=== PATIENT | female | born 1970 | race Two or more races ===

== ENCOUNTER → 2022-03-12 | Emergency (ER) | payer MEDICAID | END | disposition left against medical advice (07) | LOC: ER 22:21 | DX: M79.674 Pain in right toe(s) (principal); Z53.21 Procedure and treatment not carried out due to patient leaving prior to being seen by health care provider ==

== ENCOUNTER 2023-06-05 06:38 | Emergency (ER) | payer MEDICAID ==
[~2023-06-05] VITALS: Ht 157.5 cm; Wt 73.7 kg
[2023-06-05] MEDS ORDERED: cloNIDine HCL 0.1 MG TAB PO ONE (07:15)
[2023-06-05 07:30] LABS: Basophils # (auto) 0.1 10 ^3/uL (0-0.2); Basophils % (auto) 1.1 % (0.0-2.0); Eosinophils # (auto) 0.3 10 ^3/uL (0-0.8); Eosinophils % (auto) 4.4 % (0.0-7.0); Hematocrit 40.9 % (36.0-46.0); Hemoglobin 13.3 g/dL (12.2-16.2); Lymphocytes # (auto) 1.7 10 ^3/uL (0.4-5.4); Mean Corpuscular Hemoglobin 28.5 pg (28.0-32.0); Mean Corpuscular Hgb Conc. 32.4 g/dL (32.0-36.0); Mean Corpuscular Volume 87.9 fL (80.0-100.0); Monocytes # (auto) 0.5 10 ^3/uL (0-1.3); Monocytes % (auto) 8.2 % (0.0-12.0); Neutrophils % (auto) 61.3 % (37.0-80.0); Nucleated Red Blood Cells % 0.2 %; Red Blood Cells 4.66 10^6/uL (4.0-5.20); Red Cell Distribution Width 17.1 % (11.8-14.3); White Blood Cell 6.6 10^3/uL (4.4-10.8)
[2023-06-05 07:38] LABS: Alanine Aminotransferase 82 U/L (7-40); Albumin 4.4 g/dL (3.2-4.8); Alkaline Phosphatase 147 U/L (46-116); Anion Gap 10 (5-15); Aspartate Aminotransferase 100 U/L (13-40); BUN/Creatinine Ratio 21.6 (10.0-20.0); Blood Urea Nitrogen 11 mg/dL (9-23); Calcium 9.2 mg/dL (8.5-10.1); Carbon Dioxide 23 mmol/L (20-30); Chloride 107 mmol/L (98-107); Glucose 97 mg/dL (74-106); Potassium 3.4 mmol/L (3.5-5.1); Sodium 140 mmol/L (136-145)
[2023-06-05 07:39] LABS: Bilirubin, Total 0.5 mg/dL (0.2-1.0); Total Protein 6.8 g/dL (5.7-8.2)
[2023-06-05 08:00] VITALS: PULSE 83; RESP 15; TEMP 97.8; O2SAT 98
[2023-06-05] MEDS ORDERED: POTA10TA51 PO (08:35)
[2023-06-05] MEDS ORDERED: AML5T PO (08:37)
[2023-06-05] MEDS ORDERED: POTASSIUM EFFERVESENT TAB 25 MEQ PO ONE (08:45)
[2023-06-05] MEDS ORDERED: amLODIPine BESYLATE 5 MG TAB PO ONE (09:00)
[2023-06-05 10:16] VITALS: BP 179/95; PULSE 77; RESP 13; O2SAT 98
== END 2023-06-05 10:54 | disposition home or self-care (01) ==
LOC: ER 06:38
DX: S00.03XA Contusion of scalp, initial encounter (principal); F10.129 Alcohol abuse with intoxication, unspecified; F15.10 Other stimulant abuse, uncomplicated; E87.6 Hypokalemia; I10 Essential (primary) hypertension; R07.89 Other chest pain; F17.210 Nicotine dependence, cigarettes, uncomplicated; Z86.2 Personal history of diseases of the blood and blood-forming organs and certain disorders involving the immune mechanism; Z90.49 Acquired absence of other specified parts of digestive tract; W10.9XXA Fall (on) (from) unspecified stairs and steps, initial encounter; Y93.89 Activity, other specified; Y92.89 Other specified places as the place of occurrence of the external cause; Y99.8 Other external cause status; Y90.9 Presence of alcohol in blood, level not specified
CPT/HCPCS: 36415; 70450; 70486; 71045; 72125; 80053; 84484; 85025; 93005

== ENCOUNTER 2024-01-18 02:16 | Emergency (ER) | payer MEDICAID ==
[~2024-01-18] VITALS: Ht 160 cm; Wt 68.9 kg
[~2024-01-18 02:16] MED LIST: AML5T PO; POTA-36 PO
[2024-01-18 03:38] VITALS: BP 149/99; PULSE 95; RESP 20; TEMP 97.5; O2SAT 94
[2024-01-18] MEDS ORDERED: DOXY100C4 PO (04:10)
[2024-01-18] MEDS ORDERED: IBU600T PO (04:10)
== END 2024-01-18 04:12 | disposition home or self-care (01) ==
LOC: ER 02:16
DX: S50.862A Insect bite (nonvenomous) of left forearm, initial encounter (principal); B96.89 Other specified bacterial agents as the cause of diseases classified elsewhere; I10 Essential (primary) hypertension; F17.210 Nicotine dependence, cigarettes, uncomplicated; F10.10 Alcohol abuse, uncomplicated; F12.90 Cannabis use, unspecified, uncomplicated; Z90.49 Acquired absence of other specified parts of digestive tract; Z90.89 Acquired absence of other organs; Z79.1 Long term (current) use of non-steroidal anti-inflammatories (NSAID); Z79.899 Other long term (current) drug therapy; W57.XXXA Bitten or stung by nonvenomous insect and other nonvenomous arthropods, initial encounter; Y93.89 Activity, other specified; Y92.89 Other specified places as the place of occurrence of the external cause; Y99.8 Other external cause status